=== PATIENT | female | born 1955 | race Caucasian/White ===

== ENCOUNTER → 2017-01-26 | Outpatient (CLI) | payer OTHER ==
--- NOTE | 2017-01-30 07:25 | MM ---
Reason for exam: screening (asymptomatic). Last mammogram was performed 1 year and 5 months ago. History: Patient is postmenopausal and had first child at age 35. Took hormonal contraceptives for 6 months. Took progesterone for 1 year. Physical Findings: A clinical breast exam by your physician is recommended on an annual basis and results should be correlated with mammographic findings. MG Screening Mammo w CAD Bilateral CC and MLO view(s) were taken. Prior study comparison: February 21, 2013, bilateral digital screening mammo w/CAD. The breast tissue is heterogeneously dense. This may lower the sensitivity of mammography. Finding: There are typically benign round calcifications in the left breast. Asymmetric breast tissue in the left axillary region. There is no discrete abnormality. ASSESSMENT: Benign, BI-RAD 2 RECOMMENDATION: Routine screening mammogram of both breasts in 1 year.
== END | disposition home or self-care (01) ==
LOC: RADMAMWWP 09:56
PROVIDERS: ATTEND Family Medicine
DX: Z12.31 Encounter for screening mammogram for malignant neoplasm of breast (principal)

== ENCOUNTER → 2018-08-12 | Outpatient (CLI) | payer OTHER ==
--- NOTE | 2018-08-12 09:16 | US ---
EXAMINATION TYPE: US abdomen complete DATE OF EXAM: 08/12/2018 COMPARISON: NONE CLINICAL HISTORY: 62-year-old female R10.31 R Lower quadrant pain. TECHNIQUE: Multiple sonographic images of the abdomen are obtained. FINDINGS: EXAM MEASUREMENTS: Liver Length: 14.0 cm Gallbladder Wall: 0.2 cm CBD: 0.5 cm Spleen: 8.5 cm Right Kidney: 9.3 x 4.1 x 4.7 cm Left Kidney: 11.0 x 4.8 x 4.2 cm Pancreas: wnl Liver: wnl Gallbladder: wnl Evidence for sonographic Mckay's sign: no CBD: wnl Spleen: wnl Right Kidney: wnl Left Kidney: wnl Upper IVC: wnl Abd Aorta: wnl IMPRESSION: Unremarkable sonographic examination of the abdomen.
--- NOTE | 2018-08-12 09:23 | US ---
EXAMINATION TYPE: US transvaginal DATE OF EXAM: 08/12/2018 COMPARISON: NONE CLINICAL HISTORY: 62-year-old female R10.31 R Lower quadrant pain. TECHNIQUE: Transvaginal sonographic images of the pelvis were acquired. FINDINGS: EXAM MEASUREMENTS: Uterus: 5.2 x 2.1 x 3.7 cm Endometrial Stripe: not well seen Right Ovary: not seen Left Ovary: not seen 1. Uterus: Anteverted small in size; seen with a 1.5cm fibroid in the fundus towards the left 2. Endometrium: not well seen 3. Right Ovary: Obscured by overlying bowel gas 4. Left Ovary: Obscured by overlying bowel gas 5. Bilateral Adnexa: wnl 6. Posterior cul-de-sac: no free fluid seen IMPRESSION: Small, postmenopausal uterus with a 1.5 cm left fundal fibroid. Endometrial stripe is not well seen p resently. Neither ovary could be visualized.
== END | disposition home or self-care (01) ==
LOC: RADUSWWP 06:57
PROVIDERS: ATTEND Family Medicine
DX: D25.9 Leiomyoma of uterus, unspecified (principal); R10.31 Right lower quadrant pain; Z78.0 Asymptomatic menopausal state
CPT/HCPCS: 76700; 76830

== ENCOUNTER → 2018-08-20 | Outpatient (CLI) | payer OTHER ==
--- NOTE | 2018-08-21 12:45 | MM ---
Reason for exam: screening (asymptomatic). Last mammogram was performed 1 year and 7 months ago. History: Patient is postmenopausal and had first child at age 35. Took hormonal contraceptives for 6 months. Took progesterone for 1 year. Physical Findings: A clinical breast exam by your physician is recommended on an annual basis and results should be correlated with mammographic findings. MG 3D Screening Mammo W/Cad Bilateral CC, MLO, and XCCL view(s) were taken. Prior study comparison: January 26, 2017, bilateral MG screening mammo w CAD. September 06, 2015, left breast MG 3d diag mammo w/cad LT. The breast tissue is heterogeneously dense. This may lower the sensitivity of mammography. No significant changes when compared with prior studies. ASSESSMENT: Benign, BI-RAD 2 RECOMMENDATION: Routine screening mammogram of both breasts in 1 year.
== END | disposition home or self-care (01) ==
LOC: RADMAMWWP 07:54
PROVIDERS: ATTEND Family Medicine
DX: Z12.31 Encounter for screening mammogram for malignant neoplasm of breast (principal)
CPT/HCPCS: 77063; 77067

== ENCOUNTER → 2018-09-12 | Outpatient (CLI) | payer OTHER ==
--- NOTE | 2018-09-12 13:27 | CT ---
EXAMINATION TYPE: CT abdomen pelvis w con DATE OF EXAM: 09/12/2018 HISTORY: Right lower quadrant pain on and off x [address] DLP: 997mGycm Automated Exposure Control for Dose Reduction was Utilized. CONTRAST: CT scan of the abdomen and pelvis is performed with IV Contrast, patient injected with 100 mL of Isov ue M300. COMPARISON: None. FINDINGS: LUNG BASES: There is minimal bibasilar subsegmental dependent atelectasis. LIVER/GB: No significant abnormality is appreciated. No cholelithiasis. PANCREAS: No significant abnormality is seen. No pancreatic ductal dilatation. SPLEEN: No significant abnormality is seen. No splenomegaly. ADRENALS: No nodularity or thickening. KIDNEYS: There is a 7 mm right midpole renal cyst. Remainder the kidneys enhance and excrete symmetri rahda without hydronephrosis.. BOWEL: Although the proximal aspect of the appendix is contrast-filled the distal tip is enlarged tamika suring 7 mm and abuts what appears to be the right ovary as the gonadal vein leads to this structure seen in series 3 image 59 and 60. No discrete periappendiceal fat stranding changes are seen at this time. No free fluid, abscess, or right lower quadrant adenopathy are seen to suggest secondary signs of acute appendicitis. Few sigmoid diverticula are seen without pericolonic fat stranding. Descending and sigmoid colon are largely decompressed. No evidence of dilated large or small bowel. UTERUS/ADNEXA: No gross abnormality seen. LYMPH NODES: No greater than 1cm abdominal or pelvic lymph nodes are appreciated. OSSEOUS STRUCTURES: There is straightening of the usual lumbar lordosis with very minimal retrolisthe sis of L2 on L3 and multilevel Schmorl's nodes as well as anterior osteophytes and facet arthropathy. Sclerotic focus is seen within the left iliac bone, likely related to benign bone island. Similar ri ght ischial punctate probable benign bone island is seen. IMPRESSION: Contrast is seen within the nondilated proximal appendix, however the distal tip of the appendix is m ildly dilated measuring 7 mm (upper limits of normal 6 mm). Correlation with fever and leukocytosis i s recommended as well as McBurney's sign clinically to exclude developing appendicitis. No current ev idence of periappendiceal fat stranding, periappendiceal fluid collection, right lower quadrant adeno марина or free fluid in the right lower quadrant. A Yellow level critical message alert has been initiated for Keiko Vasquez III, MD via the [employer] Critical Results System on 09/12/2018 1:24 PM. This message alert has been sent to Keiko Vasquez III, MD via the preferences provided by the clinician for the receipt of Radiology Critical Findings . Message ID [id number].
== END | disposition home or self-care (01) ==
LOC: RADCTMAIN 10:58
PROVIDERS: ATTEND Family Medicine
DX: K86.89 Other specified diseases of pancreas (principal); R10.2 Pelvic and perineal pain
CPT/HCPCS: 74177; Q9967

== ENCOUNTER → 2019-05-12 | Outpatient (CLI) | payer OTHER ==
--- NOTE | 2019-05-12 17:41 | MR ---
EXAMINATION TYPE: MR shoulder RT wo con DATE OF EXAM: 05/12/2019 COMPARISON: None HISTORY: Bursitis of right shoulder TECHNIQUE: Multiplanar, multisequence imaging of the right shoulder is performed without contrast. FINDINGS: Rotator Cuff: There is marked attenuation of the supraspinatus tendon peripherally, small full-thickn ess tear is present, sagittal image 24 Acromioclavicular Joint: Arthropathy changes are present, I question some local bone erosion, fluid s ignal is present at the joint Glenohumeral Joint: Shoulder is high riding. Degenerative changes are present, there is marginal spur ring. Labrum: Abnormal increased signal within the superior labrum, there may be degenerative tear or myxoi d degeneration, inferior labrum shows fraying. There is geode present within the bony labrum. There i s some associated chondromalacia. Biceps Tendon: Fluid signal is present along the long head of biceps tendon which shows a normal posi tion. Bone marrow signal: There are likely screw tracks within the humeral head. Other: Suspected distal acromial spur. Fluid signal is present along the subscapularis tendon, hourgl ass appearance measures approximately 4.4 x 2.4 x 1.8 cm, there is a multilocular appearance, finding s could represent a ganglion cyst. There is a small joint effusion, fluid signal is present of subacr omial subdeltoid bursa. IMPRESSION: Marked attenuation of the rotator cuff, findings compatible with partial full-thickness tear, there i s secondary osteoarthritic change. Possible degenerative tear of the glenoid labrum. Correlate for hi story of prior surgical repair. Possible ganglion cyst as described.
== END | disposition home or self-care (01) ==
LOC: RADMRIMAIN 09:36
PROVIDERS: ATTEND Orthopaedic Surgery
DX: M19.211 Secondary osteoarthritis, right shoulder (principal)

== ENCOUNTER 2019-06-16 09:18 | Emergency (ER) | payer OTHER ==
[2019-06-16 09:28] VITALS: TEMP 98.1
[2019-06-16] MEDS ORDERED: KETOROLAC 30 MG/ML 1 ML VIAL IM STA (10:07)
[2019-06-16] MEDS ORDERED: ORPHENADRINE 30 MG/ML 2 ML VIAL IM STA (10:08)
--- NOTE | 2019-06-16 10:54 | XR ---
EXAMINATION TYPE: XR lumbar spine 2 or 3V DATE OF EXAM: 06/16/2019 COMPARISON: None HISTORY: 63-year-old female back pain this morning TECHNIQUE: 3 views FINDINGS: Vertebral body heights are preserved. Mild to moderate endplate spondylosis. Facet arthropathy. Grade 1 anterolisthesis at L4-L5. Grade 1 retrolisthesis at L2-L3. IMPRESSION: Hypertrophic facet arthropathy with grade 1 retrolisthesis at L2-L3 and grade 1 anterolisthesis at L4 -L5. Mild to moderate endplate spondylosis. No vertebral compression collapse.
--- NOTE | 2019-06-16 11:39 | ED ---
General Adult HPI - General Chief complaint: Back Pain/Injury Stated complaint: [facility] - low back injury Time Seen by Provider: 06/16/19 09:39 Source: patient, RN notes reviewed Mode of arrival: ambulatory Limitations: no limitations - History of Present Illness Initial comments: 63-year-old female presents to the emergency department for low back pain. 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 States that she twisted and felt a sudden spasm in her back. States it is in the bilateral lower back. States her work wanted her to be seen for Workmen's Comp. Patient denies any radiating pain down the lower extremities. Denies any numbness or tingling in the lower external he is. Denies any weakness in the lower extremities. No fevers or chills. Denies bladder or bowel changes or saddle anesthesia.Patient has no other complaints at this time including shortness of breath, chest pain, abdominal pain, nausea or vomiting, headache, or visual changes. - Related Data Home Medications Medication Instructions Recorded Confirmed Multivit-Min/FA/Lycopen/Lutein 1 tab PO DAILY 11/18/15 06/16/19 [Centrum Silver Tablet] Naproxen Sodium [Aleve] 220 mg PO DAILY PRN 11/18/15 06/16/19 Previous Rx's Medication Instructions Recorded Cyclobenzaprine [Flexeril] 10 mg PO TID #12 tab 06/16/19 Allergies Allergy/AdvReac Type Severity Reaction Status Date / Time Sulfa (Sulfonamide Allergy Rash/Hives Verified 06/16/19 10:08 Antibiotics) Review of Systems ROS Statement: Those systems with pertinent positive or pertinent negative responses have been documented in the HPI. ROS Other: All systems not noted in ROS Statement are negative. Past Medical History Past Medical History: No Reported History Additional Past Medical History / Comment(s): Has a small abrasion on L palm from her fall. Has a broken L wrist & is casted. History of Any Multi-Drug Resistant Organisms: None Reported Past Surgical History: Orthopedic Surgery Additional Past Surgical History / Comment(s): Ovarian cyst removed, R carpal tunnel, R rotator cuff. Past Anesthesia/Blood Transfusion Reactions: No Reported Reaction Past Psychological History: No Psychological Hx Reported Smoking Status: Never smoker Past Alcohol Use History: None Reported Past Drug Use History: None Reported - Past Family History Father Family Medical History: Cancer Additional Family Medical History / Comment(s): unknown Brother(s) Additional Family Medical History / Comment(s): Non-Hodgkin's Lymphoma General Exam Limitations: no limitations General appearance: alert, in no apparent distress Head exam: Present: atraumatic, normocephalic, normal inspection Eye exam: Present: normal appearance, PERRL, EOMI. Absent: scleral icterus, conjunctival injection, periorbital swelling ENT exam: Present: normal exam, mucous membranes moist Neck exam: Present: normal inspection, full ROM. Absent: tenderness, meningismus, lymphadenopathy Respiratory exam: Present: normal lung sounds bilaterally. Absent: respiratory distress, wheezes, rales, rhonchi, stridor Cardiovascular Exam: Present: regular rate, normal rhythm, normal heart sounds. Absent: systolic murmur, diastolic murmur, rubs, gallop, clicks Extremities exam: Present: normal capillary refill (Capillary refill less than 2 seconds, DP pulse 2+ in lower extremities bilaterally.). Absent: calf tendern ess Neurological exam: Present: alert, normal gait (Normal gait, patient is ambulatory.) Psychiatric exam: Present: normal affect, normal mood Course Vital Signs 06/16/19 09:25 Temperature 98.1 F Pulse Rate 63 Respiratory 18 Rate Blood Pressure 154/87 O2 Sat by Pulse 100 Oximetry Medical Decision Making - Medical Decision Making 63-year-old female presents to the emergency department for a chief complaint of low back pain. Patient was not wearing a letter apron when she twisted and felt a pain in her back. On exam and her last visit is intact in the lower extenders bilaterally. Vitals are stable. Patient is ambulatory. X-ray of the lumbar spine showed grade 1 retrolisthesis at L2-L3 and grade 1 anterolisthesis at L4-L5. No compression collapse. Patient was given Toradol and Norflex, so much better. At this time patient will follow up with orthopedics as well as primary care. She'll return here if she has any worsening symptoms. Disposition Clinical Impression: Mechanical back pain Disposition: HOME SELF-CARE Condition: Good Instructions (If sedation given, give patient instructions): Acute Low Back Pain (ED) Additional Instructions: Please take Motrin and Tylenol for pain. Take Norflex as needed but do not drive or operate machinery while taking this. Follow-up with primary care and orthopedics in one to 2 days. Return to the emergency department if you have any worsening symptoms. Prescriptions: Cyclobenzaprine [Flexeril] 10 mg PO TID #12 tab Is patient prescribed a controlled substance at d/c from ED?: No Referrals: Keiko Vasquez III, MD [Primary Care Provider] - 1-2 days Time of Disposition: 11:37
[2019-06-16 11:58] VITALS: BP 150/85; PULSE 65; RESP 14
== END 2019-06-16 11:50 | disposition home or self-care (01) ==
LOC: EC 09:18
DX: M43.16 Spondylolisthesis, lumbar region (principal); Z88.2 Allergy status to sulfonamides
CPT/HCPCS: 72100; 99283; 96372 ×2; J2360; J1885

== ENCOUNTER 2020-01-09 09:36 | Emergency (ER) | payer OTHER ==
[2020-01-09] MEDS ORDERED: HYDROmorphone 1 MG/ML 1 ML SYRINGE IVP STA ×2 (09:54→11:58)
--- NOTE | 2020-01-09 09:58 | ED ---
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 She presents emergency department today after trip and fall in her living room last night. She reports that she landed onto her left shoulder. Patient reports that she felt immediate pain afterwards. She reports that she was waiting for her to come home from work, and rested until that time. She reports severe pain with range of motion. Patient has had no previous orthopedic injury to this arm or shoulder. Patient is right-handed. - Related Data Home Medications Medication Instructions Recorded Confirmed Multivit-Min/FA/Lycopen/Lutein 1 tab PO DAILY 11/18/15 06/16/19 [Centrum Silver Tablet] Naproxen Sodium [Aleve] 220 mg PO DAILY PRN 11/18/15 06/16/19 Previous Rx's Medication Instructions Recorded Cyclobenzaprine [Flexeril] 10 mg PO TID #12 tab 06/16/19 HYDROcodone/APAP 10-325MG [[place] 1 tab PO Q6H PRN #18 tab 01/09/20 10-325] Allergies Allergy/AdvReac Type Severity Reaction Status Date / Time Sulfa (Sulfonamide Allergy Rash/Hives Verified 01/09/20 09:47 Antibiotics) Review of Systems ROS Statement: Those systems with pertinent positive or pertinent negative responses have been documented in the HPI. ROS Other: All systems not noted in ROS Statement are negative. Past Medical History Past Medical History: No Reported History Additional Past Medical History / Comment(s): Has a small abrasion on L palm from her fall. Has a broken L wrist & is casted. History of Any Multi-Drug Resistant Organisms: None Reported Past Surgical History: Orthopedic Surgery Additional Past Surgical History / Comment(s): Ovarian cyst removed, R carpal tunnel, R rotator cuff. Past Anesthesia/Blood Transfusion Reactions: No Reported Reaction Past Psychological History: No Psychological Hx Reported Smoking Status: Never smoker Past Alcohol Use History: Occasional Past Drug Use History: None Reported - Past Family History Father Family Medical History: Cancer Additional Family Medical History / Comment(s): unknown Brother(s) Additional Family Medical History / Comment(s): Non-Hodgkin's Lymphoma General Exam - General Exam Comments Initial Comments: 64 yo female, in sling. Moderate discomfort. Limitations: no limitations General appearance: alert, in no apparent distress Head exam: Present: atraumatic, normocephalic, normal inspection Eye exam: Present: normal appearance, PERRL, EOMI. Absent: scleral icterus, conjunctival injection, periorbital swelling ENT exam: Present: normal exam, mucous membranes moist Neck exam: Present: normal inspection. Absent: tenderness, meningismus, lymphadenopathy Respiratory exam: Present: normal lung sounds bilaterally. Absent: respiratory distress, wheezes, rales, rhonchi, stridor Cardiovascular Exam: Present: regular rate, normal rhythm, normal heart sounds. Absent: systolic murmur, diastolic murmur, rubs, gallop, clicks GI/Abdominal exam: Present: soft, normal bowel sounds. Absent: distended, tenderness, guarding, rebound, rigid Left Shoulder Exam: Present: tenderness, swelling, ecchymosis, tenderness over AC joint. Absent: normal inspection, full ROM Upper Arm exam: Present: tenderness, swelling, ecchymosis. Absent: normal inspection, full ROM Elbow exam: Present: normal inspection, full ROM Forearm Wrist exam: Present: normal inspection, full ROM Hand Wrist exam: Present: normal inspection, full ROM Neuro motor exam: Present: wrist extension intact, thumb opposition intact, thumb IP flexion intact, thumb adduction intact, fingers 2-5 abduction intact Vascular: Present: normal capillary refill Back exam: Present: normal inspection Neurological exam: Present: alert, oriented X3, CN II-XII intact Psychiatric exam: Present: normal affect, normal mood Skin exam: Present: warm, dry, intact, normal color. Absent: rash Course Vital Signs 01/09/20 09:38 Temperature 98.2 F Pulse Rate 89 Respiratory 18 Rate Blood Pressure 172/91 O2 Sat by Pulse 99 Oximetry Procedures - Orthopedic Splinting/Casting Injury #1 Side: left Upper Extremity Immobilizer: sling/shoulder immobilizer, sugar tong splint, Manuel wrap, synthetic pre-padded splint Additional Comments: Patient is neurovascularly intact. Medical Decision Making - Medical Decision Making 64-year-old female who presents emergency Department today with complaints of left shoulder pain. Patient fell last night. She has significant contusion and swelling to left shoulder. Evidence of displaced comminuted humeral fracture. Patient case was discussed with [facility], recommended CT and splinting with sling and towel underneath the armpit. Patient's are excellent intact. Splint was applied. Patient tolerated the procedure well. Patient will be discharged at this time with a course of pain medication and advised to follow-up with [facility] on Sunday. - Radiology Data Radiology results: report reviewed Acute, comminuted, impaction fracture of the surgical neck of the left humerus with invovlement of the great tuverosity. Fracture fragments are measured above. Overlying soft tissue swelling. No acute clavicular fracture on the left. CT shows Comminuted displaced and subluxed proximal left humeral fracture. Difficult to exclude pathologic fracture. Disposition Clinical Impression: Fracture of humerus, left, closed Disposition: HOME SELF-CARE Condition: Good Instructions (If sedation given, give patient instructions): Proximal Humerus Fracture (ED) Additional Instructions: Please use medication as discussed. Rx at hospital pharmacy. Follow-up with orthopedic on Sunday. Take pain medication. Please follow up with family doctor if symptoms have not improved over the next two days. Please return to the emergency room if your symptoms increase or worsen or for any other concerns. Prescriptions: HYDROcodone/APAP 10-325MG [[place] 10-325] 1 tab PO Q6H PRN #18 tab PRN Reason: Pain Is patient prescribed a controlled substance at d/c from ED?: Yes If prescribed controlled substance>3 days was MAPS reviewed?: Prescribed <3 Days If opioid is for acute pain is fill amount 7 days or less?: Yes If Rx opioid, was Start Talking consent form obtained?: Yes Referrals: Keiko Vasquez III, MD [Primary Care Provider] - 1-2 days Jun Curry MD [STAFF PHYSICIAN] - 1-2 days Time of Disposition: 12:21
--- NOTE | 2020-01-09 10:43 | XR ---
EXAMINATION TYPE: XR clavicle LT, XR shoulder complete LT DATE OF EXAM: 01/09/2020 COMPARISON: NONE HISTORY: Left shoulder pain after fall TECHNIQUE: 2 views of the left clavicle were obtained and 3 views of the left shoulder FINDINGS: The left clavicle is intact with moderate acromioclavicular arthropathy demonstrated as mar ginal osteophytes and joint space narrowing. There is a predominantly transversely oriented acute com minuted impaction fracture of the surgical neck of the left humerus with rotation of the humeral head and involvement of the greater tuberosity. Overlying soft tissue swelling is seen. The medial larges t fracture fragment is displaced approximately 1.4 cm from the comminuted fracture fragment and 2 cm from the humeral head. There is diffuse osseous demineralization. Impaction of approximately 9 mm. IMPRESSION: Acute, comminuted, impaction fracture of the surgical neck of the left humerus with invol vement of the greater tuberosity. Fracture fragments are measured above. Overlying soft tissue swelli ng. No acute clavicular fracture on the left.
--- NOTE | 2020-01-09 11:38 | CT ---
EXAMINATION TYPE: CT shoulder LT wo con DATE OF EXAM: 01/09/2020 COMPARISON: Plain film same date HISTORY: Fall, fracture CT DLP: 387.1 mGycm Automated exposure control for dose reduction was used. Helical imaging through the left shoulder usi departmental protocol. FINDINGS: Comminuted displaced left humeral fracture is present proximally, there is some posterior subluxation . Some increased attenuation is present within the marrow of the proximal humerus distal to the fract ure site may be related to the trauma, hemorrhage. Abnormal soft tissue at the level of the humerus f racture may be related to posttraumatic change, difficult to exclude marrow replacement. Subcutaneous edema, abnormal soft tissue swelling is noted about the fracture. Visualized portions of the left lung are unremarkable. There is no evident pneumothorax or pleural ef fusion. Coronary artery calcifications noted incidentally. IMPRESSION: COMMINUTED DISPLACED AND SUBLUXED PROXIMAL LEFT HUMERAL FRACTURE. DIFFICULT TO EXCLUDE PATHOLOGIC FRA CTURE.
[2020-01-09 12:34] VITALS: BP 147/79; PULSE 90; RESP 17; TEMP 98.1
== END 2020-01-09 12:38 | disposition home or self-care (01) ==
LOC: EC 09:36
DX: S42.212A Unspecified displaced fracture of surgical neck of left humerus, initial encounter for closed fracture (principal); Z88.2 Allergy status to sulfonamides; Z98.890 Other specified postprocedural states; Z87.81 Personal history of (healed) traumatic fracture; W01.0XXA Fall on same level from slipping, tripping and stumbling without subsequent striking against object, initial encounter; Y93.89 Activity, other specified; Y92.008 Other place in unspecified non-institutional (private) residence as the place of occurrence of the external cause
CPT/HCPCS: 99285; 96374; 96376; 29105; 73030; 73000; 73200; J1170

== ENCOUNTER → 2020-01-16 | Day surgery (SDC) | payer OTHER ==
[2020-01-14 15:11] VITALS: BMI 24.3
[~2020-01-16] MED LIST: BUPIVACAINE (PF) 0.5% 30 ML VIAL INTRAARTIC ONE; DEXAMETHASONE SOD PHOSPHATE 10 MG/ML 1 ML VIAL IV ONE; DEXAMETHASONE SOD PHOSPHATE 4 MG/ML 1 ML VIAL ONE; GLYCOPYRROLATE 0.2 MG/ML 2 ML VIAL ONE; HEPARIN SODIUM,PORCINE 5,000 UNIT/ML 1 ML VIAL SQ ONE; HYDROmorphone (PF) 1 MG/ML ONE; HYDROmorphone 0.5 MG/0.5 ML SYRINGE IVP ONE; HYDROmorphone 0.5 MG/0.5 ML SYRINGE IVP PRN; HYDROmorphone 1 MG/ML 1 ML SYRINGE IVP ONE; LACTATED RINGERS 1,000 ML IV ONE; LACTATED RINGERS 1,000 ML IV SCH; LIDOCAINE 1% (10MG/ML) FOR IV START INTRADERMA PRN; LIDOCAINE 1% INJ 10MG/ML (20 ML MDV) ONE; MIDAZOLAM 2 MG/2 ML VIAL IV PRN; MIDAZOLAM 2 MG/2 ML VIAL ONE; NEOSTIGMINE 1 MG/ML 10 ML VIAL ONE; ONDANSETRON 4 MG/2 ML VIAL IVP ONE; PHENYLEPHRINE-0.9% NACL SYG 1 MG/10 ML SYRINGE ONE; PROPOFOL 10 MG/ML 20 ML VIAL IV ONE; ROCURONIUM BROMIDE 10 MG/ML 5 ML VIAL IV ONE; ROPIVACAINE 5 MG/ML 30 ML VIAL ONE; SUCCINYLCHOLINE CHLORIDE 100 MG/5 ML SYR IV ONE; ceFAZolin 1,000 MG in SODIUM CHLORIDE 0.9% 1,000 ML IRRIGATION ONE; ePHEDrine SULFATE/0.9% NACL/PF 50 MG/5 ML SYRINGE IV ONE; fentaNYL (PF) 50 MCG/ML 2 ML AMP IVP PRN; fentaNYL (PF) 50 MCG/ML 2 ML AMP ONE
--- NOTE | 2020-01-16 12:23 | P.ANPRN ---
Procedure Note - Anesthesia - Nerve Block Performed Left Supraclavicular Single Time Out Performed: Yes Date of Procedure: 01/16/20 Procedure Start Time: 12:10 Procedure Stop Time: 12:20 Location of Patient: PreOp Indication: Acute Post-Operative Pain, Requested by Surgeon Sedation Type: Sedate with meaningful contact maintained Preparation: Sterile Prep, Sterile Dressing Position: Supine Catheter: None Needle Types: Pajunk Needle Gauge: 20 Ultrasound used to visualize needle placement: Yes Ultrasound used to observe medication spread: Yes Injectate: 0.5% Ropivacaine (see comment for volume) (30 ml + decadron 10 mg) Blood Aspirated: No Pain Paresthesia on Injection Noted: No Resistance on Injection: Normal Image Stored and Saved: Yes Events: Uneventful and Well Tolerated
--- NOTE | 2020-01-16 15:14 | FL ---
EXAMINATION TYPE: FL guidance operating room, XR humerus LT DATE OF EXAM: 01/16/2020 CLINICAL HISTORY: Left shoulder fracture. TECHNIQUE: Fluoroscopy. Intraoperative 2 views left humerus. COMPARISON: Left shoulder x-ray and CT January 09, 2020.. FINDINGS: Fluoroscopic guidance was provided during open reduction internal fixation procedure perfo rmed by Dr. Curry. A total of roughly 30 seconds of fluoroscopic time was utilized during the proced ure and two spot images are acquired. Images acquired show placement of a lateral fixating plate through comminuted fracture surgical neck left proximal humerus with improved alignment after reduction and fixation. IMPRESSION: As Above.
--- NOTE | 2020-01-16 15:43 | P.OP ---
Date of Procedure: 01/16/20 Procedure(s) Performed: PREOPERATIVE DIAGNOSES: 1. Left shoulder proximal humerus fracture, 3 part POSTOPERATIVE DIAGNOSES: 1. Left shoulder proximal humerus fracture, 3 part 2. Left shoulder rotator cuff noted to be intact 3. Severe osteoporosis and severe comminution PROCEDURES PERFORMED: 1. Left shoulder proximal humerus fracture open reduction and internal fixation using Synthes periarticular locking plate ANESTHESIA: Gen. WELFARE SUPERVISOR: Seble Loja PA-C (assistance with exposure, hemostasis, retraction, fixation, closure, dressing) COMPLICATIONS: None ESTIMATED BLOOD LOSS: 100 mL. 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 The fracture is comminuted and displaced and has been analyzed by computed tomography scan, for preoperative planning. I have advised reduction and fixation of the proximal humerus fracture using hardware. She has a recent history of extremely low vitamin D level, and severe osteoporosis. I have described the steps of the operation as well as potential risks and complications and the patient wishes to proceed. These risks and potential complications are inclusive of, but not limited to: Bleeding, infection, scarring, discomfort, blood vessel and/or nerve damage, stiffness, hardware irritation, malunion, nonunion, arthritis, further fracture, rotator cuff injury, muscular injury to the deltoid, need for prolonged physical therapy, and other risks, including . I have also explained the seriousness of this kind of fracture and the resultant predictable stiffness and disability that results typically from this kind of fracture even despite modern surgical treatment. The patient wishes to proceed and has signed the consent form. PROCEDURE: After appropriate consent was obtained, the patient was taken to the operating room placed in the supine position. Anesthesia was initiated, and after confirmation of adequate anesthesia, the patient was carefully positioned in the beachchair position. Care was taken to make sure that all pressure points were adequately padded. A small bump was placed beneath the operative scapula. Prepping and draping were completed in the usual aseptic fashion, with the arm draped free, using ChloraPrep. Timeout was called, confirming patient identity, side, procedure, and administration of antibiotics. Standard deltopectoral incision was created with a #10 blade from the inferior border of the clavicle, across the medial aspect of the coracoid process, and down to the deltoid insertion of the humerus. Total size of the incision was approximately 7 inches. The incision was deepened using Bovie electrocautery and meticulous hemostasis was obtained. Subcutaneous dissection was carried down to muscular fascia. The cephalic vein was identified and retracted along with the deltoid laterally. Muscular perforators into the pectoralis muscle were carefully identified and cauterized. The deltopectoral interval was then carefully and bluntly and mobilization of the deep surface of the deltoid was accomplished using a Marcus elevator. A deltoid retractor was then placed and manual retraction of the pectoralis was performed. Standard self- retaining retractors were applied in the tissues the red stripe adjacent to the strap tendons was incised using cautery and self-retaining retractor was applied beneath the strap tendons. Excellent visualization was accomplished with this method and a small portion of the super area or aspect of the pectoralis tendon was released for good exposure to the humerus. The fracture was identified and organizing hematoma was removed. Severe comminution was present, and the metaphyseal bone was extremely soft and friable. Direct visualization of the rotator cuff was accomplished by removing subdeltoid and subacromial bursa as necessary. There was no evidence of significant rotator cuff tear or chronic impingement syndrome. The fracture was carefully mobilized with attention to produce as little devascularization of the fragments as possible. Therefore, soft tissue attachments to the fragments were left intact as much as possible. C-arm imaging was used to assess reduction of the fracture. The shaft fragment was realigned with the humeral head fragment using manual manipulation to maneuver laterally the humeral shaft as well as gentle manipulation of the shou lder and proximal fragments. The proximal fragment was controlled using a 2 mm K wire. Once an acceptable reduction had been obtained with fluoroscopy, provisional pin fixation was performed and the reduction was rechecked. A Synthes proximal humeral periarticular plate was inserted with the posterior portion of the buttress against the greater tuberosity and the medial portion of the plate just lateral to the bicipital groove. Care was taken to make sure that the biceps tendon was not trapped beneath the plate or in the fracture. The plate was positioned superiorly or inferiorly as needed to reach an optimal position. This was assessed using C-arm imaging. Reduction was difficult secondary to extreme comminution at the surgical neck. A preliminary pin was placed and C-arm images were taken with gentle rotation of the of the shoulder to assess in multiple planes. The slotted screw hole was then utilized to place a 3.5 mm bicortical fully threaded cortical screw. The screw was used to bring the shaft to the plate and provide buttress support proximally against the humeral head. The fracture further reduced very nicely with this step. C-arm imaging confirmed proper placement and orientation of the hardware. Proximal locking screws were then placed. All screws were measured for depth and 6 mm was subtracted from the measurement so that there would be no chance of dorota dvertent joint penetration of the screw head. A final screw was placed in the distal hole of the plate to further secure the shaft fragment. Final C-arm imaging in both the AP plane and a rotated view to see a lateral projection of the proximal humerus, showed acceptable alignment of the fracture. All screws were critically evaluated to make sure that there was no significant chance of screw penetration even with some anticipated subsidence of the humeral head. Gentle range of motion was performed in flexion, abduction, and rotation to assess stability of the fracture site. The fracture was completely stable, including the greater tuberosity and lesser tuberosity minimally displaced fragments. Thorough irrigation and final hemostasis was obtained, and final C- arm images were taken and saved. The wound was then thoroughly irrigated with normal saline and the portion of the lateralis tendon that was released for exposure was repaired using 0 Vicryl suture. Closure of the deltopectoral interval was performed using 0 Vicryl suture followed by 2-0 Vicryl suture in subcu tissues and standard skin closure using Dermabond. Sterile dressing was then applied and the patient's arm was placed into a sling Patient tolerated the procedure well and taken to recovery room in stable condition. Sponge and needle counts were correct.
[2020-01-16 16:03] VITALS: TEMP 97.6
[2020-01-16 16:08] VITALS: RESP 16
[2020-01-16 17:14] VITALS: BP 109/60; PULSE 83
== END | disposition home or self-care (01) ==
LOC: OR 10:46
PROVIDERS: ATTEND Orthopaedic Surgery
DX: S42.232A 3-part fracture of surgical neck of left humerus, initial encounter for closed fracture (principal); I10 Essential (primary) hypertension; G43.109 Migraine with aura, not intractable, without status migrainosus; F32.9 Major depressive disorder, single episode, unspecified; F43.21 Adjustment disorder with depressed mood; Z97.3 Presence of spectacles and contact lenses; Z88.2 Allergy status to sulfonamides; Z98.890 Other specified postprocedural states; Z79.899 Other long term (current) drug therapy; Z80.8 Family history of malignant neoplasm of other organs or systems; Z81.8 Family history of other mental and behavioral disorders; Z82.49 Family history of ischemic heart disease and other diseases of the circulatory system; Z81.1 Family history of alcohol abuse and dependence; W01.198A Fall on same level from slipping, tripping and stumbling with subsequent striking against other object, initial encounter
CPT/HCPCS: 64415; 76942; 73060; 23615; C1713; C1762; J2250; J1100 ×2; J2710; J0690 ×2; J2405; J2001; J3010; J1170 ×2; J2795; J2370; J0330; J2704

== ENCOUNTER 2020-02-03 06:00 | Day surgery (SDC) | payer OTHER ==
[2020-01-30 11:23] VITALS: BMI 22.7
[2020-02-03] MEDS ORDERED: LACTATED RINGERS 1,000 ML IV SCH (06:05)
[2020-02-03] MEDS ORDERED: LIDOCAINE 1% (10MG/ML) FOR IV START INTRADERMA PRN (06:05)
[2020-02-03] MEDS ORDERED: HYDROmorphone 0.5 MG/0.5 ML SYRINGE IVP PRN (06:05)
[2020-02-03] MEDS ORDERED: ONDANSETRON 4 MG/2 ML VIAL IVP ONE (06:05)
[2020-02-03 06:46] VITALS: RESP 16
[2020-02-03] MEDS ORDERED: DEXAMETHASONE SOD PHOSPHATE 10 MG/ML 1 ML VIAL IV ONE (07:00)
[2020-02-03] MEDS ORDERED: MIDAZOLAM 2 MG/2 ML VIAL IVP ONE ×2 (07:15→08:25)
[2020-02-03] MEDS ORDERED: fentaNYL (PF) 50 MCG/ML 2 ML AMP IVP ONE ×2 (07:15→07:25)
[2020-02-03] MEDS ORDERED: ROCURONIUM BROMIDE 10 MG/ML 5 ML VIAL IV ONE (08:25)
[2020-02-03] MEDS ORDERED: SUCCINYLCHOLINE CHLORIDE 100 MG/5 ML SYR IV ONE (08:25)
[2020-02-03] MEDS ORDERED: HYDROmorphone (PF) 1 MG/ML ONE (08:25)
[2020-02-03] MEDS ORDERED: fentaNYL (PF) 50 MCG/ML 2 ML AMP ONE (08:25)
[2020-02-03] MEDS ORDERED: PROPOFOL 10 MG/ML 20 ML VIAL IV ONE (08:25)
[2020-02-03] MEDS ORDERED: ePHEDrine SULFATE/0.9% NACL/PF 50 MG/5 ML SYRINGE IV ONE (08:25)
[2020-02-03] MEDS ORDERED: ROPIVACAINE 5 MG/ML 30 ML VIAL ONE (08:25)
[2020-02-03] MEDS ORDERED: MIDAZOLAM 2 MG/2 ML VIAL ONE (08:25)
[2020-02-03] MEDS ORDERED: GLYCOPYRROLATE 0.2 MG/ML 2 ML VIAL ONE (08:25)
[2020-02-03] MEDS ORDERED: NEOSTIGMINE 1 MG/ML 10 ML VIAL ONE (08:25)
[2020-02-03] MEDS ORDERED: DEXAMETHASONE SOD PHOSPHATE 4 MG/ML 1 ML VIAL ONE (08:25)
[2020-02-03] MEDS ORDERED: LIDOCAINE 1% INJ 10MG/ML (20 ML MDV) ONE (08:25)
[2020-02-03] MEDS ORDERED: PHENYLEPHRINE-0.9% NACL SYG 1 MG/10 ML SYRINGE ONE (08:25)
[2020-02-03] MEDS ORDERED: ceFAZolin 3,000 MG in SODIUM CHLORIDE 0.9% IRRIGATIO 3,000 ML IRRIGATION ONE (09:12)
[2020-02-03] MEDS ORDERED: LACTATED RINGERS 1,000 ML IV ONE ×2 (09:38→11:23)
--- NOTE | 2020-02-03 11:58 | P.ANPRN ---
Procedure Note - Anesthesia - Nerve Block Performed Left Interscalene Single Time Out Performed: Yes ([id number]) Date of Procedure: 02/03/20 Procedure Start Time: 07:14 Procedure Stop Time: :21 Location of Patient: PreOp Indication: Acute Post-Operative Pain, Requested by Surgeon Specifically requested for management of pain by DrAscencion: Jun Curry Sedation Type: Sedate with meaningful contact maintained Preparation: Sterile Prep Position: Supine Catheter: None Needle Types: Pajunk Needle Gauge: 21 Ultrasound used to visualize needle placement: Yes Ultrasound used to observe medication spread: Yes Injectate: 0.5% Ropivacaine (see comment for volume) (30 cc) Blood Aspirated: No Pain Paresthesia on Injection Noted: No Resistance on Injection: Normal Image Stored and Saved: Yes Events: Uneventful and Well Tolerated
--- NOTE | 2020-02-03 12:00 | P.OP ---
Date of Procedure: 02/03/20 Procedure(s) Performed: PREOPERATIVE DIAGNOSES: 1. Right shoulder proximal humerus fracture,displaced 2. Severe osteoporosis 3. Status post open reduction and internal fixation with failed hardware POSTOPERATIVE DIAGNOSES: 1. Right shoulder proximal humerus fracture, displaced 2. Right shoulder rotator cuff noted to be intact 3. Severe osteoporosis 4. Status post open reduction and internal fixation with failed hardware PROCEDURES PERFORMED: 1. Right shoulder hemiarthroplasty with fracture stem, cemented (Arthrex Univers Fracture stem) 2. Open reduction internal fixation of greater and lesser tuberosity fractures 3. Open long head biceps tenotomy with tenodesis ANESTHESIA: Gen. VICE PRESIDENT OF HUMAN RESOURCES: Nakul Forrester PA-C (assistance with exposure, hemostasis, retraction, fixation, closure, dressing) COMPLICATIONS: None ESTIMATED BLOOD LOSS: 470 mL. DISPOSITION: To post-anesthesia care unit INDICATIONS: Katrina is a 64 year old female with a history of falling and sustaining a right shoulder proximal humerus fracture. She underwent ORIF of the fracture about 2 weeks ago, but recently noted something moving and a recent x-ray in the office shows the fracture to have become disengaged from the locking screws of the plate. Presumably this was due to the patient's severe o steoporosis with extremely low vit D level. The fracture now is redisplaced and the option now is for reverse TSA versus hemiarthroplasty. I have discussed with her that rTSA may provide a better functional outcome for her. Considering her intact rotator cuf and the fact that she is at increased risk for intraoperative fracture during rTSA, we have discussed proceeding with hemiarthroplasty. I did discuss both options with her but considering the complexity of a rTSA in the context of existing hardware and severe osteoporosis, I would send her to [facility] in [place]. She has con sidered this, but in light of the current coronavirus pandemic, she wishes to avoid the major hospitals. I have described the steps of the operation as well as potential risks and complications and the patient wishes to proceed. These risks and potential complications are inclusive of, but not limited to: Bleeding, infection, scarring, discomfort, blood vessel and/or nerve damage, stiffness, hardware irritation, malunion, nonunion, arthritis, further fracture, rotator cuff injury, muscular injury to the deltoid, need for prolonged physical therapy, and other risks, including . I have also explained the seriousness of this kind of fracture and the resultant predictable stiffness and disability that results typically from this kind of fracture even despite modern surgical treatment. The patient wishes to proceed and has signed the consent form. PROCEDURE: After appropriate consent was obtained, the patient was taken to the operating room placed in the supine position. Anesthesia was initiated, and after confirmation of adequate anesthesia, the patient was carefully positioned in the beachchair position. Care was taken to make sure that all pressure points were adequately padded. A small bump was placed beneath the operative scapula. Prepping and draping were completed in the usual aseptic fashion, with the arm draped free, using ChloraPrep. Timeout was called, confirming patient identity, side, procedure, and administration of antibiotics. Standard deltopectoral incision was recreated with a #10 blade from the inferior border of the clavicle, across the medial aspect of the coracoid process, and down to the deltoid insertion of the humerus, following the previous incision. Total size of the incision was approximately 9 inches. The incision was deepened using Bovie electrocautery and meticulous hemostasis was obtained. Subcutaneous dissection was carried down to muscular fascia. The cephalic vein was identified and retracted along with the deltoid laterally. Muscular perforators into the pectoralis muscle were carefully identified and cauterized. The deltopectoral interval was then carefully and bluntly and mobilization of the deep surface of the deltoid was accomplished using a Marcus elevator. A deltoid retractor was then placed and manual retraction of the pectoralis was performed. Standard self-retaining retractors were applied in the tissues the red stripe adjacent to the strap tendons was incised using cautery and self-retaining retractor was applied beneath the strap tendons. Excellent visualization was accomplished with this method and a small portion of the super area or aspect of the pectoralis tendon was released for good exposure to the humerus. The fracture was identified and organizing hematoma was removed. Direct visualization of the rotator cuff was accomplished by removing subdeltoid and subacromial bursa as necessary. There was no evidence of significant rotator cuff tear or chronic impingement syndrome. The pre-existing hardware was addressed first. Using a star screwdriver, the locking screws were removed from the proximal fragment and standard hexhead screwdriver was used to remove the nonlocking screws in the shaft. The plate was easily removed. Organizing tissue was removed from this area and attention was then performed to mobilization of the shaft fragment and mobilization of the head fragment. A lesser tuberosity osteotomy was performed after tagging sutures were placed within the tendon of the subscapularis. 3 such sutures were placed for later repair to the humeral component. Next, the arm was able to be externally rotated safely and the head fragment was removed entirely. Care was taken to undermine the greater tuberosity and leave a bony fragment for repair. The superior cuff appeared to be intact without evidence of tearing or impingement syndrome. Bursal tissue was removed as necessary to fully mobilize the cuff relative to the undersurface of the acromion and glenoid. Glenoid was visually and palpably inspected and found to have intact cartilage sufficient to justify a hemiarthroplasty. Next, tag sutures were placed within the greater tuberosity fragment. 4 such insert sutures were placed at the bone tendon junction. This allowed good mobilization of the greater tuberosity and attention was then directed to preparation of the shaft for implantation of fracture stem. 8 mm shorthand reporter was performed down the shaft of the humerus. This proceeded in 1 millimeter increments to size 11 which had decent cortical chatter at the expected implantation level of the component. Trial component was then placed with attention for proper retroversion using alignment guide. The height of the component was adjusted to match the contralateral humerus which was measured preoperatively. A few millimeters were subtracted from this measurement so that the components on the left would not be overstuffing the joint or too long. The trial component was then removed, and 2 holes were drilled into the humeral shaft proximally 1 cm from the lip of the fracture on either side of the bicipital groove. #2 FiberWire sutures were placed in these holes for later repair to the tuberosities. Cement was prepared on the back table and allowed to reach a doughy consistency. Some cement was placed around the component, which was a size 11 Arthrex fracture stem. Some cement was also placed at the proximal portion of the humerus and gently pressurized using finger pressurization technique. The component was then inserted in approximately 30 of retroversion matching the alignment guide which was lined up with the forearm. The component was placed into the pre-determined level and the cement was allowed to harden. Excess cement was removed during this time. Trial head was then inserted and a size 46 humeral head maximum offset inferiorly was chosen. Trial reduction was then performed, and the 46 head with maximum offset inferiorly was selected. Trial head was then removed and sutures were then placed through the trunnion flange holes corresponding to the bone tendon sutures of the greater tuberosity. 3 cerclage sutures were then also placed around the medial aspect of the humeral component and around the greater tuberosity fragment through the lateral fin holes. Next, the bone tendon junction sutures of the lesser tuberosity were threaded the trunnion holes of the anterior aspect of the component for anticipated repair of the less tuberosity to this area. The final humeral head component was then rotated into position and impacted onto the taper. Through bone sutures of the greater and lesser tuberosities were then placed and brought through the lateral fin holes and securely tied down. These included the cerclage sutures previously mentioned. The inferior FiberWire sutures through the humeral shaft were then also used to secure the tuberosities with a tension band-type weave through the bone tendon junction. The rotator interval was then sutured also using #2 FiberWire and during this time the bilateral biceps tendon was incorporated into the fracture/repair site and was tenodesed. The interval between the lesser and greater tuberosities was also closed superficially using Vicryl suture. Next, the range of motion of the shoulder was tested the patient was easily able to obtain 100 and 20 of forward elevation and approximately 100 of abduction. External rotation was noted to be about 60 and internal rotation with the arm in abduction (scarecrow position) was noted to be approximately 50. The shoulder was stable and had good mobility both anteriorly and posteriorly with a return to a centered position after release of a posteriorly directed force. Thorough irrigation was performed and final hemostasis was obtained using K cautery and the patient then had more superficial closure performed. Closure of the deltopectoral interval was performed using 0 Vicryl suture followed by 2-0 Vicryl suture in subcu tissues and standard skin closure using Dermabond. Sterile dressing using Opteform was then applied and the patient's arm was placed into a sling. Patient tolerated the procedure well and taken to recovery room in stable condition. Sponge and needle counts were correct.
[2020-02-03 12:15] VITALS: TEMP 97.7
[2020-02-03 13:12] VITALS: PULSE 95
[2020-02-03] MEDS ORDERED: HYDROcodone/APAP 7.5-325MG 1 EACH TAB PO ONE (13:19)
[2020-02-03 13:31] VITALS: BP 106/56
== END 2020-02-03 14:30 | disposition home or self-care (01) ==
LOC: OR 06:00
PROVIDERS: ATTEND Orthopaedic Surgery
DX: T84.191A Other mechanical complication of internal fixation device of left humerus, initial encounter (principal); S42.222D 2-part displaced fracture of surgical neck of left humerus, subsequent encounter for fracture with routine healing; I10 Essential (primary) hypertension; M81.0 Age-related osteoporosis without current pathological fracture; M19.90 Unspecified osteoarthritis, unspecified site; G43.109 Migraine with aura, not intractable, without status migrainosus; F43.21 Adjustment disorder with depressed mood; Z88.2 Allergy status to sulfonamides; Z79.899 Other long term (current) drug therapy; Z98.890 Other specified postprocedural states; Z80.0 Family history of malignant neoplasm of digestive organs; Z81.8 Family history of other mental and behavioral disorders; Z82.49 Family history of ischemic heart disease and other diseases of the circulatory system; Z80.7 Family history of other malignant neoplasms of lymphoid, hematopoietic and related tissues; Z80.42 Family history of malignant neoplasm of prostate; W10.9XXA Fall (on) (from) unspecified stairs and steps, initial encounter
CPT/HCPCS: 64415; 76942; 23470; C1713; C1776; J2250; J1100 ×2; J2710; J0690 ×2; J2405; J2001; J3010; J1170; J2795; J2370; J0330; J2704

== ENCOUNTER → 2020-05-13 | Outpatient (CLI) | payer OTHER ==
--- NOTE | 2020-05-17 08:42 | MM ---
Reason for exam: screening (asymptomatic). Last mammogram was performed 1 year and 9 months ago. History: Patient is postmenopausal and had first child at age 35. Took hormonal contraceptives for 6 months. Took progesterone for 1 year. Physical Findings: A clinical breast exam by your physician is recommended on an annual basis and results should be correlated with mammographic findings. MG 3D Screening Mammo W/Cad Bilateral CC and MLO view(s) were taken. XCCL view(s) were taken of the right breast. Prior study comparison: August 20, 2018, bilateral MG 3d screening mammo w/cad. January 26, 2017, bilateral MG screening mammo w CAD. The breast tissue is heterogeneously dense. This may lower the sensitivity of mammography. No significant changes when compared with prior studies. ASSESSMENT: Benign, BI-RAD 2 RECOMMENDATION: Routine screening mammogram of both breasts in 1 year.
== END | disposition home or self-care (01) ==
LOC: RADMAMWWP 14:29
PROVIDERS: ATTEND Family Medicine
DX: Z12.31 Encounter for screening mammogram for malignant neoplasm of breast (principal)
CPT/HCPCS: 77063; 77067

== ENCOUNTER → 2020-05-26 | Outpatient (CLI) | payer OTHER ==
--- NOTE | 2020-05-26 17:45 | BD ---
EXAMINATION TYPE: Axial Bone Density DATE OF EXAM: 05/26/2020 COMPARISON: NONE CLINICAL HISTORY: 64 YR OLD FEMALE....ICD-10 CODE: S42.202D UNSPECIFIED FX OF UPPER END LT. Height: 66 Weight: 162 FRAX RISK QUESTIONS: Family History (Parent hip fracture): YES History of Fracture in Adulthood: YES RISK FACTORS HISTORY OF: LT WRIST FX, OVER AGE OF 50, AND LT SHOULDER/HUMERUS THIS YR AT AGE 64 Family History of Osteoporosis: YES, HER GRANDMOTHER WITH HIP FX Active: YES Postmenopausal woman: YES, AT AGE 53 Hyperparathyroidism: NO Adrenal Insufficiency: NO MEDICATIONS: Additional Medications: BP MEDS, CITALOPRAM, VIT D AND CALCIUM Additional History: SHOULDER FX THIS YR, LOW VIT D AND HYPERTENSION EXAM MEASUREMENTS: Bone mineral densitometry was performed using the iPierian System. Bone mineral density as measured about the Lumbar spine is: ----- L1-L4(G/cm2): 1.050 T Score Values are as follows: ----- L1: -2.2 ----- L2: -1.9 ----- L3: -0.8 ----- L4: 0.1 ----- L1-L4: -1.1 Bone mineral density FIRST BONE DENSITY SCAN.......BASELINE STUDY Bone mineral density about the R hip (g/cm2): 0.798 Bone mineral density about the L hip (g/cm2): 0.805 T Score values are as follows: -----R Neck: -2.0 -----L Neck: -2.0 -----R Total: -1.7 -----L Total: -1.6 Bone mineral density BASELINE STUDY FRAX%s: THERE IS A 31.4% FOR A MAJOR OSTEOPOROTIC FX AND A 2.6% FOR HIP.......PROBABILITY FOR FX IN 10 YRS TIME IMPRESSION: Osteopenia (T Score between -2.5 and -1). There is slightly increased risk of fracture and the patient may be considered for treatment. Re-Screen 2-5 years. NOTE: T-SCORE=SD OF THE YOUNG ADULT MEAN.
== END | disposition home or self-care (01) ==
LOC: RADBDWWP 08:41
PROVIDERS: ATTEND Family Medicine
DX: M85.80 Other specified disorders of bone density and structure, unspecified site (principal)
CPT/HCPCS: 77080

== ENCOUNTER → 2020-07-30 | Outpatient (CLI) | payer OTHER ==
--- NOTE | 2020-07-31 09:23 | CT ---
EXAMINATION TYPE: CT abdomen pelvis w con DATE OF EXAM: 07/30/2020 COMPARISON: CT 09/12/2018 HISTORY: Right lower quadrant abdominal pain. CT DLP: 529.3 mGycm Automated exposure control for dose reduction was used. TECHNIQUE: Helical acquisition of images from the lung bases through the pelvis have been completed. CONTRAST: Performed with Oral Contrast and with IV Contrast, patient injected with 100ml mL of Isovue 300. FINDINGS: LUNG BASES: No significant abnormality is appreciated. AORTA: No significant abnormality is appreciated. LIVER/GB: No significant abnormality is appreciated. PANCREAS: No significant abnormality is seen. SPLEEN: No significant abnormality is seen. ADRENALS: No significant abnormality is seen. KIDNEYS: No significant interval change is seen, small cortical cyst associated with the right kidney as on prior. REPRODUCTIVE ORGANS: No significant interval change is seen, uterus and ovaries show a similar appear ance to prior exam BOWEL: No significant abnormality is seen, the appendix is somewhat ectatic peripherally similar to prior exam, no inflammatory change is evident, the appendix fills with contrast, there is no wall thi ckening or periappendiceal fluid collection. FREE AIR: No Free Air visible. ASCITES: None visible. PELVIC ADENOPATHY: None visualized. RETROPERITONEAL ADENOPATHY: No Retroperitoneal Adenopathy visible. URINARY BLADDER: No significant abnormality is seen. OSSEOUS STRUCTURES: Degenerative disc changes are present.. IMPRESSION: ESSENTIALLY STABLE FINDINGS. DISTAL APPENDIX IS SOMEWHAT ECTATIC DESCRIBED AND NOTED ON PRIOR E XAM.
== END | disposition home or self-care (01) ==
LOC: RADCTMAIN 15:12
PROVIDERS: ATTEND Family Medicine
DX: R10.31 Right lower quadrant pain (principal); R10.2 Pelvic and perineal pain
CPT/HCPCS: 74177; Q9967

== ENCOUNTER → 2021-06-01 | Outpatient (CLI) | payer OTHER ==
--- NOTE | 2021-06-06 11:25 | MM ---
Reason for exam: screening (asymptomatic). Last mammogram was performed 1 year and 1 month ago. History: Patient is postmenopausal and had first child at age 35. Took hormonal contraceptives for 6 months. Took progesterone for 1 year. Physical Findings: A clinical breast exam by your physician is recommended on an annual basis and results should be correlated with mammographic findings. MG 3D Screening Mammo W/Cad Bilateral CC and MLO view(s) were taken. Prior study comparison: May 13, 2020, bilateral MG 3d screening mammo w/cad. August 20, 2018, bilateral MG 3d screening mammo w/cad. January 26, 2017, bilateral MG screening mammo w CAD. The breast tissue is extremely dense which could obscure a lesion on mammography. Finding: There is a high density, obscured round mass located 10 cm from the nipple in the posterior position of the left breast. New finding since May 13, 2020, August 20, 2018, and January 26, 2017. ASSESSMENT: Incomplete: need additional imaging evaluation, BI-RAD 0 RECOMMENDATION: Ultrasound of the left breast. [facility] will attempt to contact patient to return for ultrasound.
== END | disposition home or self-care (01) ==
LOC: RADMAMWWP 07:02
PROVIDERS: ATTEND Family Medicine
DX: Z12.31 Encounter for screening mammogram for malignant neoplasm of breast (principal); Z78.0 Asymptomatic menopausal state; Z79.3 Long term (current) use of hormonal contraceptives
CPT/HCPCS: 77063; 77067

== ENCOUNTER → 2021-06-14 | Outpatient (CLI) | payer OTHER ==
--- NOTE | 2021-06-15 07:49 | USB ---
Reason for exam: additional evaluation requested from abnormal screening. History: Patient is postmenopausal and had first child at age 35. Took hormonal contraceptives for 6 months. Took progesterone for 1 year. Physical Findings: Nurse did not find any significant physical abnormalities on exam. US Breast Workup Limited LT Technologist: Anna Tucker Left limited breast ultrasound including focal area of concern, retroareolar and axilla demonstrates no cystic or solid lesion seen. These results were verbally communicated with the patient and result sheet given to the patient on 06/14/21. ASSESSMENT: Negative, BI-RAD 1 RECOMMENDATION: Return to routine screening mammogram schedule for both breasts.
== END | disposition home or self-care (01) ==
LOC: RADUSWWP 14:55
PROVIDERS: ATTEND Family Medicine
DX: Z78.0 Asymptomatic menopausal state (principal)

== ENCOUNTER → 2022-06-05 | Outpatient (CLI) | payer MEDICARE ==
[2022-06-05 14:41] LABS: Basophils # (A) 0.02 X 10*3/uL (0.00-0.10); Basophils % (A) 0.4 %; Eosinophils % (A) 3.8 %; HGB 12.4 g/dL (12.0-15.0); Immature Grans, Automated 0.2 %; Lymphocytes # (A) 2.03 X 10*3/uL (0.90-5.00); Lymphocytes % (A) 38.2 %; MCH 29.5 pg (27.0-32.0); MCHC 31.8 g/dL (32.0-37.0); MCV 92.9 fL (80.0-97.0); Mean Platelet Volume 8.9 fL (9.5-12.2); Monocytes # (A) 0.33 X 10*3/uL (0.20-1.00); Monocytes % (A) 6.2 %; NRBC Per 100 WBC 0 /100 WBCS (0.0-0.0); Neutrophils # (A) 2.72 X 10*3/uL (1.80-7.70); Neutrophils % (A) 51.2 %; Platelet Count 327 X 10*3/uL (140-440); RDW 12.7 % (11.5-14.5); WBC 5.31 X 10*3/uL (4.50-10.00)
[2022-06-05 15:59] LABS: ALT 16 U/L (8-44); AST 20 U/L (13-35); African American GFR (CKD) 91.7 (60.0-200.0); Albumin 4.7 g/dL (3.8-4.9); Albumin/Globulin Ratio 1.81 (1.60-3.17); Alkaline Phosphatase 94 U/L (41-126); BUN/Creat Ratio 20.13 Ratio (12.00-20.00); Blood Urea Nitrogen 15.8 mg/dL (9.0-27.0); Calcium 10.2 mg/dL (8.7-10.3); Carbon Dioxide 25.3 mmol/L (20.0-27.5); Chloride 103 mmol/L (96-109); Globulin 2.6 g/dL (1.6-3.3); Glucose 97 mg/dL (70-110); LDL Cholesterol,Calculated 133.6 mg/dL (0.0-131.0); Non-African American GFR(CKD) 79.2 (60.0-200.0); Potassium 3.9 mmol/L (3.5-5.5); Sodium 138 mmol/L (135-145); Total Protein 7.2 g/dL (6.2-8.2)
--- NOTE | 2022-06-06 08:19 | MM ---
Reason for Exam: Screening (asymptomatic). Last screening mammogram was performed 12 month(s) ago. Patient History: Menarche at age 14. First Full-Term at age 35. Late child-bearing (after 30). Postmenopausal. Patient used Progesterone for 1 year. Hormonal Contraceptives for 6 months until age 23. Risk Values: Petrona 5 year model risk: 2.3%. NCI Lifetime model risk: 8.6%. Prior Study Comparison: 08/20/2018 Bilateral Screening Mammogram, [facility]. 05/13/2020 Bilateral Screening Mammogram, [facility]. 06/01/2021 Bilateral Screening Mammogram, [facility]. Tissue Density: The breast tissue is heterogeneously dense. This may lower the sensitivity of mammography. Findings: Analyzed By CAD. There is no suspicious group of microcalcifications or new suspicious mass in either breast. Overall Assessment: Negative, BI-RAD 1 Management: Screening Mammogram of both breasts in 1 year. A clinical breast exam by your physician is recommended on an annual basis and results should be correlated with mammographic findings. Electronically signed and approved by: Rajan Michael M.D. Radiologis
== END | disposition home or self-care (01) ==
LOC: RADMAMWWP 09:13
PROVIDERS: ATTEND Family Medicine
DX: Z12.31 Encounter for screening mammogram for malignant neoplasm of breast (principal); Z78.0 Asymptomatic menopausal state
CPT/HCPCS: 77063; 77067; 80053; 80061; 82306; 85025

== ENCOUNTER 2023-06-23 05:35 | Emergency (ER) | payer MEDICARE ==
[2023-06-23 05:52] VITALS: BP 151/92; PULSE 73; RESP 18; TEMP 98
[2023-06-23] MEDS ORDERED: KETOROLAC 15 MG/ML 1 ML VIAL IM STA (06:36)
[2023-06-23] MEDS ORDERED: LIDOCAINE 5% PATCH TOPICAL STA (06:36)
[2023-06-23] MEDS ORDERED: ORPHENADRINE 30 MG/ML 2 ML VIAL IM STA (06:36)
--- NOTE | 2023-06-23 06:40 | ED ---
General Adult HPI - General Chief complaint: Back Pain/Injury Stated complaint: Rib Pain Time Seen by Provider: 06/23/23 06:20 Source: patient, RN notes reviewed, old records reviewed Mode of arrival: wheelchair Limitations: no limitations - History of Present Illness Initial comments: Nontoxic-appearing 67-year-old female presents to the emergency room with complaints of left posterior rib pain. Patient states that she rolled over in the bed around midnight and felt a sharp pain. 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 States it hurts when she takes a deep breath or with twisting motions. -: hour(s) (6) Location: back (left posterior rib) Radiation: non-radiation Severity scale (1-10): 2 Quality: stabbing Consistency: intermittent Improves with: immobilization Worsens with: movement Associated Symptoms: denies other symptoms - Related Data Home Medications Medication Instructions Recorded Confirmed Citalopram Hydrobromide [CeleXA] 40 mg PO QAM 01/14/20 01/30/20 Multivitamins, Thera [Multivitamin 1 tab PO DAILY 01/14/20 01/30/20 (formulary)] Naproxen Sodium [Aleve] 220 mg PO DAILY PRN 01/14/20 01/30/20 lisinopriL 20 mg PO QAM 01/14/20 01/30/20 Previous Rx's Medication Instructions Recorded HYDROcodone/APAP 7.5-325MG [[place] 1 - 2 tab PO Q4-6H PRN #50 tab 01/16/20 7.5-325] Sennosides-Docusate Sodium 1 tab PO BID #60 tablet 01/16/20 [Senokot-S] HYDROcodone/APAP 7.5-325MG [[place] 1 tab PO Q6HR PRN 3 Days #12 tab 02/03/20 7.5-325] hydrOXYzine pamoate [Vistaril] 25 mg PO Q6HR PRN #12 capsule 02/03/20 Cyclobenzaprine [Flexeril] 10 mg PO TID PRN #15 tab 06/23/23 Allergies Allergy/AdvReac Type Severity Reaction Status Date / Time Sulfa (Sulfonamide Allergy Rash/Hives Verified 06/23/23 05:51 Antibiotics) Patient : No Review of Systems ROS Statement: Those systems with pertinent positive or pertinent negative responses have been documented in the HPI. ROS Other: All systems not noted in ROS Statement are negative. Past Medical History Past Medical History: No Reported History Additional Past Medical History / Comment(s): osteoporosis,Has a small abrasion on L palm from her fall. Has a broken L wrist & is casted. History of Any Multi-Drug Resistant Organisms: None Reported Past Surgical History: Orthopedic Surgery Additional Past Surgical History / Comment(s): ORIF left shoulder 01-16-20, hx Ovarian cyst removed, R carpal tunnel, R rotator cuff. Past Anesthesia/Blood Transfusion Reactions: Motion Sickness Past Psychological History: No Psychological Hx Reported Smoking Status: Never smoker Past Alcohol Use History: Occasional Past Drug Use History: None Reported - Past Family History Father Family Medical History: Cancer Additional Family Medical History / Comment(s): Oral Brother(s) Family Medical History: Cancer Additional Family Medical History / Comment(s): Non-Hodgkin's Lymphoma General Exam Limitations: no limitations General appearance: alert, in no apparent distress Head exam: Present: atraumatic, normocephalic Eye exam: Present: normal appearance. Absent: scleral icterus, conjunctival injection, periorbital swelling Neck exam: Present: full ROM. Absent: tenderness, meningismus Respiratory exam: Present: normal lung sounds bilaterally. Absent: respiratory distress, accessory muscle use Cardiovascular Exam: Present: regular rate Extremities exam: Present: normal capillary refill Back exam: Present: paraspinal tenderness (left thoracic posterior rib) Neurological exam: Present: alert, oriented X3 Psychiatric exam: Present: normal affect, normal mood Skin exam: Present: warm, dry, normal color. Absent: cyanosis, diaphoretic, petechiae, pallor Course Vital Signs 06/23/23 05:47 Temperature 98 F Pulse Rate 73 Respiratory 18 Rate Blood Pressure 151/92 O2 Sat by Pulse 99 Oximetry Medical Decision Making - Medical Decision Making Was pt. sent in by a medical professional or institution (, PA, CURTAIN CLEANER, urgent care, hospital, or [facility]...) When possible be specific @ -No Did you speak to anyone other than the patient for history (EMS, parent, family, police, friend...)? What history was obtained from this source @ -No Did you review nursing and triage notes (agree or disagree)? Why? @ -I reviewed and agree with nursing and triage notes Were old charts reviewed (outside hosp., previous admission, EMS record, old EK G, old radiological studies, urgent care reports/EKG's, [facility] records)? Report findings @ -No old charts were reviewed Differential Diagnosis (chest pain, altered mental status, abdominal pain women, abdominal pain men, vaginal bleeding, weakness, fever, dyspnea, syncope, headache, dizziness, GI bleed, back pain, seizure, CVA, palpatations, mental health, musculoskeletal)? @ -Rib fracture, musculoskeletal pain, muscle spasm, shingles, pneumothorax, this is not an all n/inclusive list EKG interpreted by me (3pts min.). @ n/a X-rays interpreted by me (1pt min.). @ -None done CT interpreted by me (1pt min.). @ -None done U/S interpreted by me (1pt. min.). @ -None done What testing was considered but not performed or refused? (CT, X-rays, U/S, labs)? Why? @ -Chest x-ray was considered however there was no trauma. Lung sounds are clear to auscultation and vital signs are stable. What meds were considered but not given or refused? Why? @ -None Did you discuss the management of the patient with other professionals (professionals i.e. , PA, CURTAIN CLEANER, lab, RT, psych nurse, manager social work, account services coordinator, teacher, customs and border protection officer, leather case finisher)? Give summary @ -No Was smoking cessation discussed for >3mins.? @ -No Was critical care preformed (if so, how long)? @ -[No] Were there social determinants of health that impacted care today? How? (Homelessness, low income, unemployed, alcoholism, drug addiction, transportation, low edu. Level, literacy, decrease access to med. care, detention, rehab)? @ -[No] Was there de-escalation of care discussed even if they declined (Discuss DNR or withdrawal of care, Hospice)? DNR status @ -[No] What co-morbidities impacted this encounter? (DM, HTN, Smoking, COPD, CAD, Cancer, CVA, ARF, Chemo, Hep., AIDS, mental health diagnosis, sleep apnea, morbid obesity)? @ -[None] Was patient admitted / discharged? Hospital course, mention meds given and route, prescriptions, significant lab abnormalities, going to OR and other pertinent info. @ -Discharged Nontoxic-appearing 67-year-old female presents to the emergency room with complaints of left posterior rib pain. Patient states that she rolled over in the bed around midnight and felt a sharp pain. 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 States it hurts when she takes a deep breath or with twisting motions. She denies any chest pain. Pain worse with deep inspiration. On physical exam there is no evidence of bruising or rash. Pain with palpation left posterior ribs. Lungs sounds are clear to auscultation. Vital signs are stable. She was given Norflex, Toradol and Lidoderm patch and states pain greatly improved and is ready to be discharged home. Prescription for Flexeril was provided. States that she does have Lidoderm patches at home and will continue to use Aleve. Return to the emergency room with a new concerning symptoms. Case discussed with Dr. Rich Undiagnosed new problem with uncertain prognosis? @ -[No] Drug Therapy requiring intensive monitoring for toxicity (Heparin, Nitro, Insulin, Cardizem)? @ -[No] Were any procedures done? @ -[No] Diagnosis/symptom? @ -Musculoskeletal pain Acute, or Chronic, or Acute on Chronic? @ -Acute Uncomplicated (without systemic symptoms) or Complicated (systemic symptoms)? @ -Uncomplicated Side effects of treatment? @ -[No] Exacerbation, Progression, or Severe Exacerbation? @ -[No] Poses a threat to life or bodily function? How? (Chest pain, [place], [place], pneumonia, PE, COPD, DKA, ARF, appy, cholecystitis, CVA, Diverticulitis, Homicidal, Suicidal, threat to staff... and all critical care pts) @ -[No] Disposition Clinical Impression: Musculoskeletal back pain Disposition: HOME SELF-CARE Condition: Good Instructions (If sedation given, give patient instructions): Acute Low Back Pain (ED) Additional Instructions: Take Flexeril as prescribed. Do not use alcohol when taking this medication. Continue Aleve and pain patches. Follow-up with her primary care doctor next week as needed. Prescriptions: Cyclobenzaprine [Flexeril] 10 mg PO TID PRN #15 tab PRN Reason: Muscle Spasm Is patient prescribed a controlled substance at d/c from ED?: No Referrals: Allegra Fitzpatrick DO [Primary Care Provider] - 1-2 days Time of Disposition: 07:16
== END 2023-06-23 07:34 | disposition home or self-care (01) ==
LOC: EC 05:35
DX: M54.9 Dorsalgia, unspecified (principal); Z88.2 Allergy status to sulfonamides
CPT/HCPCS: 99283; 96372 ×2; J2360; J1885

== ENCOUNTER → 2023-07-09 | Outpatient (CLI) | payer MEDICARE ==
--- NOTE | 2023-07-09 11:06 | BD ---
EXAMINATION TYPE: Axial Bone Density DATE OF EXAM: 07/09/2023 CLINICAL HISTORY: 67 years old Female. ICD-10 CODE: M85.80 Disorder of bon Height: 66 in Weight: 170 lbs FRAX RISK QUESTIONS: Family History (Parent hip fracture): yes mother History of Fracture in Adulthood: lt wrist fx age 56; lt shoulder fx age 64 RISK FACTORS HISTORY OF: History of Wrist Fracture: lt wrist fx age 57 Surgery to Wrist (left): age 57 Active: yes Postmenopausal woman: age 56 MEDICATIONS: Additional Medications: calcium, vit d, EXAM MEASUREMENTS: Bone mineral densitometry was performed using the [employer] System. Bone mineral density as measured about the Lumbar spine is: ----- L1-L4(G/cm2): 1.001 T Score Values are as follows: ----- L1: -2.8 ----- L2: -1.7 ----- L3: -1.6 ----- L4: -0.2 ----- L1-L4: -1.5 Z Score Values are as follows: ----- L1: -1.6 ----- L2: -0.5 ----- L3: -0.4 ----- L4: 1.0 ----- L1-L4: -0.3 Bone mineral density has: Decreased -4.7% since study of: 05/26/2020 Bone mineral density about the R hip (g/cm2): 0.750 Bone mineral density about the L hip (g/cm2): 0.731 T Score values are as follows: -----R Neck: -2.3 -----L Neck: -2.6 -----R Total: -2.0 -----L Total: -2.2 Z Score values are as follows: -----R Neck: -1.1 -----L Neck: -1.4 -----R Total: -1.1 -----L Total: -1.2 Bone mineral density has: Decreased -7.6% since study of: 05/26/2020 FRAX%s: The graph provided illustrates a 37.4% chance for a major osteoporotic fx and a 7.5% chance f or the hips probability for fx in 10 years time. IMPRESSION: Osteopenia (T Score between -2.5 and -1). There is slightly increased risk of fracture and the patient may be considered for treatment. Re-Screen 2-5 years. NOTE: T-SCORE=SD OF THE YOUNG ADULT MEAN.
[2023-07-09 16:54] LABS: % Iron Saturation 37.54 (12.00-45.00); ALT 21 U/L (8-44); AST 23 U/L (13-35); Albumin 4.5 d/dL (3.8-4.9); Albumin/Globulin Ratio 2.25 Ratio (1.60-3.17); Alkaline Phosphatase 109 U/L (41-126); BUN/Creat Ratio 27.75 Ratio (12.00-20.00); Blood Urea Nitrogen 22.2 mg/dL (9.0-27.0); Calcium 9.7 mg/dL (8.7-10.3); Carbon Dioxide 24.2 mmol/L (21.6-31.8); Chloride 107 mmol/L (96-109); Chol/HDL Ratio 2.17 Ratio; Glucose 98 mg/dL (70-110); Iron 122 UG/DL (50-170); LDL Cholesterol,Calculated 113.5 mg/dL (0.0-131.0); Potassium 4.2 mmol/L (3.5-5.5); Sodium 143 mmol/L (135-145); Total Bilirubin 0.3 mg/dL (0.3-1.2); Total Iron Binding Capacity 325 UG/DL (228-460); Total Protein 6.5 d/dL (6.2-8.2); VLDL Calculation 12.48 mg/dL (5.00-40.00)
[2023-07-09 18:24] LABS: Basophils # (A) 0.06 X 10*3/uL (0.00-0.10); Eosinophils # (A) 0.26 X 10*3/uL (0.04-0.35); Eosinophils % (A) 4.1 %; HCT 40.4 % (37.2-46.3); HGB 13.1 d/dL (12.0-15.0); Lymphocytes % (A) 30.2 %; MCH 30.8 pg (27.0-32.0); MCHC 32.4 d/dL (32.0-37.0); MCV 94.8 FL (80.0-97.0); Monocytes # (A) 0.44 X 10*3/uL (0.20-1.00); NRBC Per 100 WBC 0 X 10*3/uL (0.00-0.01); Neutrophils # (A) 3.62 X 10*3/uL (1.80-7.70); Neutrophils % (A) 57.4 %; Platelet Count 327 X 10*3/uL (140-440); RBC 4.26 X 10*6/uL (4.10-5.20); RDW 12.7 % (11.5-14.5)
--- NOTE | 2023-07-10 09:48 | MM ---
Reason for Exam: Screening (asymptomatic). Last mammogram was performed 1 year(s) and 1 month(s) ago. Patient History: Menarche at age 14. First Full-Term at age 35. Late child-bearing (after 30). Postmenopausal. Patient used Progesterone for 1 year. Hormonal Contraceptives for 6 months until age 23. Risk Values: Petrona 5 year model risk: 2.3%. NCI Lifetime model risk: 8.2%. Prior Study Comparison: 05/13/2020 Bilateral Screening Mammogram, [facility]. 06/01/2021 Bilateral Screening Mammogram, [facility]. 06/05/2022 Bilateral MG 3D screening mammo w/cad, [facility]. Tissue Density: The breast tissue is heterogeneously dense. This may lower the sensitivity of mammography. Findings: Analyzed By CAD. There is no suspicious group of microcalcifications or new suspicious mass in either breast. Overall Assessment: Benign, BI-RAD 2 Management: Screening Mammogram of both breasts in 1 year. . Patient should continue monthly self-breast exams. A clinical breast exam by your physician is recommended on an annual basis. This exam should not preclude additional follow-up of suspicious palpable abnormalities. Note on Petrona scores and lifetime risk: 1. A Petrona score greater than 3% is considered moderate risk. If this is the case, consider specialist referral to assess eligibility for a risk reducing agent. 2. If overall lifetime risk for the development of breast cancer is 20% or higher, the patient may qualify for future screening with alternating mammogram and breast MRI. Electronically signed and approved by: Rajan Michael M.D. Radiologis
== END | disposition home or self-care (01) ==
LOC: RADMAMWWP 08:22
PROVIDERS: ATTEND Family Medicine
DX: Z12.31 Encounter for screening mammogram for malignant neoplasm of breast (principal); E78.5 Hyperlipidemia, unspecified; M85.88 Other specified disorders of bone density and structure, other site; M81.0 Age-related osteoporosis without current pathological fracture; R53.83 Other fatigue; Z78.0 Asymptomatic menopausal state
CPT/HCPCS: 77063; 77067; 77080; 80053; 80061; 82306; 82607; 82728; 83540; 83550; 84443; 85025

== ENCOUNTER → 2024-07-30 | Outpatient (CLI) | payer MEDICARE ==
--- NOTE | 2024-07-31 10:39 | MM ---
Reason for Exam: Screening (asymptomatic). Last mammogram was performed 1 year(s) and 1 month(s) ago. Patient History: Menarche at age 14. First Full-Term at age 35. Late child-bearing (after 30). Postmenopausal. Patient has history of breast feeding. Patient used Progesterone for 1 year. Hormonal Contraceptives for 6 months until age 23. Risk Values: Petrona 5 year model risk: 2.3%. NCI Lifetime model risk: 7.9%. Prior Study Comparison: 06/01/2021 Bilateral Screening Mammogram, [facility]. 06/05/2022 Bilateral MG 3D screening mammo w/cad, [facility]. 07/09/2023 Bilateral MG 3D screening mammo w/cad, [facility]. Tissue Density: The breasts are heterogeneously dense, which may obscure small masses. Findings: Analyzed By CAD. Right breast: There is no suspicious group of microcalcifications or new suspicious mass. Left breast: There is no suspicious group of microcalcifications or new suspicious mass. Overall Assessment: Negative, BI-RAD 1 Management: Screening Mammogram of both breasts in [address] [facility] will attempt to contact patient to return for supplemental views and ultrasound if indicated. Patient should continue monthly self-breast exams. A clinical breast exam by your physician is recommended on an annual basis. This exam should not preclude additional follow-up of suspicious palpable abnormalities. Note on Petrona scores and lifetime risk: 1. A Petrona score greater than 3% is considered moderate risk. If this is the case, consider specialist referral to assess eligibility for a risk reducing agent. 2. If overall lifetime risk for the development of breast cancer is 20% or higher, the patient may qualify for future screening with alternating mammogram and breast MRI. [facility], , 07/31/2024 10:36 AM. Electronically signed and approved by: José Miguel Valle DO
== END | disposition home or self-care (01) ==
LOC: RADMAMWWP 14:41
PROVIDERS: ATTEND Family Medicine
DX: Z12.31 Encounter for screening mammogram for malignant neoplasm of breast
CPT/HCPCS: 77063; 77067

== ENCOUNTER → 2024-10-09 | Outpatient (CLI) | payer MEDICARE ==
--- NOTE | 2024-10-10 19:05 | XR ---
EXAMINATION TYPE: XR bone survey complete DATE OF EXAM: 10/09/2024 3:17 PM COMPARISON: None. CLINICAL INDICATION: Female, 68 years old with history of E83.52 HYPERCAL D47.2 MONOCL BONE SURVEY, TECHNIQUE: Multiple view(s) obtained in the axial and appendicular skeleton. FINDINGS: Chest: Heart size is normal. Pulmonary vasculature is normal. Lungs are clear. Cervical spine: 2 views obtained. There is loss of disc height see 5 6 C6-7. Anterior vertebral body spurring is present at C5-C7. Facet hypertrophy is present. No suspicious lytic or sclerotic lesions identified. Skull: 2 views of the skull were obtained. There may be a lucency within the vertex on the frontal pr ojection. CT can be performed if closer evaluation would be of Benefit. Humeri: There is a left shoulder prosthesis. No acute fractures. No lytic lesions evident. Degenerati ve change at the greater tuberosity of the right shoulder. Thoracic spine: Scoliosis in the upper thoracic spine. Degenerative disc changes loss of disc height T2-3. There are 12 thoracic type vertebral bodies. Pedicles are intact. Vertebral body heights are pr eserved no suspicious lytic lesions identified Lumbar spine: There are 5 lumbar-type vertebral bodies. Pedicles are intact. There is loss of disc he ight of L4-5 and disc space narrowing L2-3. A grade 1 spondylolisthesis of L4 anteriorly on L5 is pre sent. Degenerative changes are at the disc space of L2-3 with anterior vertebral body spurring also p resent. No suspicious lytic lesions evident. Structures appear osteopenic. This could be correlated w ith bone density. I lateral femurs: 2 views of the femurs are obtained. Femoral heads articulate with the acetabulum. N o suspicious lytic lesions evident. Knee joint space appears preserved. AP pelvis: Femoral heads articular with the acetabulum. Sacroiliac joints and symphysis pubis are nor mal. No suspicious lytic or sclerotic lesions evident. IMPRESSION: 1. There may be lytic lesion at the vertex of the skull. 2. No additional suspicious lytic areas. 3. Degenerative changes are discussed above. [facility], , 10/10/2024 7:02 PM
== END | disposition home or self-care (01) ==
LOC: RADXRMAIN 14:11
PROVIDERS: ATTEND Internal Medicine Hematology & Oncology
DX: E83.52 Hypercalcemia (principal); D47.2 Monoclonal gammopathy
CPT/HCPCS: 77075